=== PATIENT | female | born 1990 | race Caucasian/White ===

== ENCOUNTER 2017-06-30 22:47 | Emergency (ER) | payer OTHER ==
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
[2017-06-30] MEDS ORDERED: Octyl 2-Cyanoacrylate 1 Tube TOP ONE (23:58)
== END 2017-07-01 01:45 | disposition home or self-care (01) ==
LOC: MW.ED 22:47
DX: S01.81XA Laceration without foreign body of other part of head, initial encounter (principal); W20.8XXA Other cause of strike by thrown, projected or falling object, initial encounter
CPT/HCPCS: 99282; A9270